=== PATIENT | male | born 1940 ===

== ENCOUNTER 2016-09-08 14:30 | Outpatient (RCR) | payer MEDICARE, MEDICAID | END 2016-10-07 | disposition home or self-care (01) | LOC: WCC 14:30 | DX: I70.262 Atherosclerosis of native arteries of extremities with gangrene, left leg (principal); I70.245 Atherosclerosis of native arteries of left leg with ulceration of other part of foot; I96 Gangrene, not elsewhere classified; E08.52 Diabetes mellitus due to underlying condition with diabetic peripheral angiopathy with gangrene; I10 Essential (primary) hypertension; E11.9 Type 2 diabetes mellitus without complications; Z85.21 Personal history of malignant neoplasm of larynx; Z83.3 Family history of diabetes mellitus | CPT/HCPCS: G0463 ==